=== PATIENT | male | born 1940 | race Caucasian/White ===

== ENCOUNTER 2016-07-07 09:38 | Emergency (ER) | payer MEDICARE, OTHER ==
[2016-07-07 10:35] LABS: #Basophils 0.1 thou/uL (0.0-0.2); #Eosinphils 0.2 thou/uL (0.0-0.7); #Lymphocytes 1.4 thou/uL (1.20-3.40); #Monocytes 0.5 thou/uL (0.11-0.59); #Neutrophils 6.1 thou/uL (1.40-6.50); %Basophils 0.9 % (0.0-1.0); %Eosinophils 2.6 % (0.0-10.0); %Monocytes 5.6 % (0.0-10.0); Hematocrit 42.8 % (42.0-52.0); Mean Platelet Volume 6.5 fL (7.4-10.4); Red Blood Cell (RBC) Count 4.49 mill/uL (4.70-6.10); White Blood Cell (WBC) Count 8.2 thou/uL (4.8-10.8)
[2016-07-07 10:38] LABS: PTT 24.8 SEC (22.9-36.1); Prothrombin Time 13.1 SEC (12.0-14.7)
[2016-07-07 10:45] LABS: ALT (SGPT) 21 U/L (0-55); AST (SGOT) 17 U/L (5-34); Alkaline Phosphatase 78 U/L (40-150); Anion Gap 15 mmol/L (10-20); BUN (Urea Nitrogen) 33 mg/dL (8.4-25.7); Bilirubin, Total 0.5 mg/dL (0.2-1.2); Calc. Creatinine Clearance 0 mL/min (70-130); Calcium 9.1 mg/dL (7.8-10.44); Carbon Dioxide 21 mmol/L (23-31); Chloride 107 mmol/L (98-107); Estimated GFR-MDRD 34; Globulin 2.5 g/dL (2.4-3.5); Protein, Total 6.5 g/dL (5.8-8.1)
[2016-07-07 10:48] LABS: Troponin I Less than 0.010 ng/mL (< 0.028)
--- NOTE | 2016-07-07 11:54 | RAD ---
LEFT RIBS WITH PA CHEST: DATE: 07/07/16. FINDINGS: Multiple views were provided. Not all ribs display equally well, but this is the best that could be done with this patient at this time. No rib fractures were seen. There is no sign of pneumothorax. No large pleural effusions were note d, though there could be a small one on the left and perhaps a little bit of basilar atelectasis. T his sometimes can signify underlying rib fractures, but none were visible at the moment. The lungs are otherwise clear. The heart is normal in size for age. The mediastinum shows no widen ing or shift. The other visible bony structures showed no acute changes. Degenerative changes are prominent in the spine. IMPRESSION: No acute bony findings. See discussion above. POS: HOME
== END 2016-07-07 11:18 | disposition home or self-care (01) ==
LOC: BURERS 09:38
DX: S20.212A Contusion of left front wall of thorax, initial encounter (principal); I10 Essential (primary) hypertension; E11.9 Type 2 diabetes mellitus without complications; W17.89XA Other fall from one level to another, initial encounter
CPT/HCPCS: 80053; 82553; 84484; 85025; 85610; 85730; 93005; 94760

== ENCOUNTER 2016-12-07 06:28 | Emergency (ER) | payer MEDICARE ==
[2016-12-07 07:10] LABS: Bilirubin Negative (Negative); Blood, Urine Negative (Negative); Clarity Clear (Clear); Glucose, Urine (Dipstick) Negative (Negative); Leukocyte Negative (Negative); Nitrite Negative (Negative); Protein, Urine (Dipstick) Trace mg/dL (Neg-Trace); Urobilinogen 0.2 mg/dL (0.2-1.0); pH, Urine 5.5 (5.0-9.0)
[2016-12-07 07:14] LABS: Specific Gravity, Urine Greater/Equal 1.030 (1.005-1.030)
== END 2016-12-07 07:04 | disposition home or self-care (01) ==
LOC: BURERS 06:28
DX: R33.9 Retention of urine, unspecified (principal); E11.9 Type 2 diabetes mellitus without complications; I10 Essential (primary) hypertension
CPT/HCPCS: 51701; 81003; A4353

== ENCOUNTER 2018-01-10 10:31 | Emergency (ER) | payer MEDICARE ==
[2018-01-10] MEDS ORDERED: Diazepam 5 MG TAB ONE (11:13)
== END 2018-01-10 11:19 | disposition home or self-care (01) ==
LOC: BURERS 10:31
DX: S16.1XXA Strain of muscle, fascia and tendon at neck level, initial encounter (principal); I10 Essential (primary) hypertension; E11.9 Type 2 diabetes mellitus without complications; X50.1XXA Overexertion from prolonged static or awkward postures, initial encounter
CPT/HCPCS: 99283

== ENCOUNTER 2019-01-26 06:21 | Emergency (ER) | payer MEDICARE ==
[2019-01-26 06:58] LABS: #Basophils 0.1 thou/uL (0.0-0.2); #Eosinphils 0.2 thou/uL (0.0-0.7); #Lymphocytes 1.2 thou/uL (1.20-3.40); #Monocytes 0.8 thou/uL (0.11-0.59); #Neutrophils 10.5 thou/uL (1.40-6.50); %Basophils 0.5 % (0.0-1.0); %Eosinophils 1.3 % (0.0-10.0); %Lymphocytes 9.5 % (21.0-51.0); %Monocytes 6.3 % (0.0-10.0); %Neutrophils 82.4 % (42.0-75.0); Hemoglobin 13.4 g/dL (14.0-18.0); Mean Corpuscular HGB CONC 34.5 g/dL (32.0-36.0); Mean Corpuscular Volume 95.7 fL (78.0-98.0); Mean Platelet Volume 6.5 fL (7.4-10.4); Platelet Count 180 thou/uL (130-400); RBC Distribution Width 11.3 % (11.5-14.5); Red Blood Cell (RBC) Count 4.05 mill/uL (4.70-6.10); White Blood Cell (WBC) Count 12.7 thou/uL (4.8-10.8)
[2019-01-26] MEDS ORDERED: Fentanyl 100 MCG/2 ML VIAL ONE (07:02)
[2019-01-26 07:13] LABS: ALT (SGPT) 21 U/L (8-55); AST (SGOT) 18 U/L (5-34); Alkaline Phosphatase 63 U/L (40-150); Anion Gap 16 mmol/L (10-20); BUN (Urea Nitrogen) 25 mg/dL (8.4-25.7); Bilirubin, Total 0.6 mg/dL (0.2-1.2); Calc. Creatinine Clearance 0 mL/min (70-130); Calcium 9.4 mg/dL (7.8-10.44); Carbon Dioxide 22 mmol/L (23-31); Chloride 107 mmol/L (98-107); Estimated GFR-MDRD 42; Globulin 2.4 g/dL (2.4-3.5); Glucose 237 mg/dL (83-110); Potassium 4.5 mmol/L (3.5-5.1); Protein, Total 6.4 g/dL (5.8-8.1); Sodium 140 mmol/L (136-145)
[2019-01-26 07:43] LABS: Lipase 4053 U/L (8-78)
[2019-01-26] MEDS ORDERED: Iopamidol 370 76% 100 ML VIAL ONE (08:02)
--- NOTE | 2019-01-26 10:09 | CT ---
CT OF THE CHEST AND ABDOMEN AND PELVIS WITH IV CONTRAST: INDICATION: History of hypertension, diabetes, gastroesophageal reflux disease, abdominal and chest pain. COMPARISON: None. FINDINGS: No confluent airspace opacity or pleural effusion is noted. There are areas of subsegmental volume l oss involving both lower lobes. There are scattered calcifications involving the coronary arteries and thoracic aorta. No focal hepatic lesion is evident. The gallbladder is contracted. There is inflammatory stranding seen surrounding the 2nd portion of the duodenum as well s the pancreatic head. There are tiny calci fications seen within the pancreatic head adjacent to the region of the ampulla. No drainable fluid collection is evident. There are 2 cystic abnormalities seen within the pancreatic tail which cannot be further characterized measuring 9 and 12 mm separately. This is best seen on image 88 of the cor onal series. No additional focal pancreatic lesion is grossly evident. There is a 1-2 mm calculus within the lower pole of the right kidney. There is an atrophic left kidn ey. There are moderate calcifications involving the abdominopelvic vasculature. Scattered diverticula involving the colon. The small bowel is of normal caliber. No drainable fluid collection is evident. There bladder, rectum, and perirectal soft tissues are unremarkable-appearin g. There is cervical lumbar scoliosis with scattered degenerative change. No definite acute osseous abnormality is evident. IMPRESSION: 1. Findings suspicious for noncomplicated acute pancreatitis. Recommend correlation with clinical e xamination and laboratory evaluation. There are tiny punctate coarse calcifications seen in the panc reatic head adjacent to the ampulla which may reflect sequelae of prior pancreatitis. Partially calc ified ampullary lesion is not definitely excluded. Would recommend a gastroenterology consultation i n consideration for endoscopy. 2. Cystic abnormalities involving the pancreatic tail. Further evaluation with a CT of the abdomen utilizing pancreatic mass protocol after abatement of the patient's acute symptoms is recommended. D ifferential considerations include small pseudocysts, small serous cysts or possibly small side branc h IMPN tumors. 3. Colonic diverticulosis. 4. Other chronic findings as above. CODE T POS: OFF
== END 2019-01-26 08:37 | disposition short-term general hospital (02) ==
LOC: BURERS 06:21
DX: K85.90 Acute pancreatitis without necrosis or infection, unspecified (principal); I10 Essential (primary) hypertension; E78.00 Pure hypercholesterolemia, unspecified; K21.9 Gastro-esophageal reflux disease without esophagitis; N40.0 Benign prostatic hyperplasia without lower urinary tract symptoms; Z79.899 Other long term (current) drug therapy; Z79.84 Long term (current) use of oral hypoglycemic drugs
CPT/HCPCS: 36415; 71260; 74177; 80053; 83605; 83690; 84484; 85025; 93005; 94760; 96361; 96374; J3010; Q9967

== ENCOUNTER 2019-04-03 13:51 | Emergency (ER) | payer MEDICARE ==
[2019-04-03] MEDS ORDERED: Ondansetron PF 4 MG/2 ML Vial ONE ×2 (14:24→14:36)
[2019-04-03] MEDS ORDERED: Fentanyl 100 MCG/2 ML VIAL ONE (14:24)
[2019-04-03 14:34] LABS: #Monocytes 0.7 thou/uL (0.11-0.59); #Neutrophils 15.1 thou/uL (1.40-6.50); %Basophils 0.2 % (0.0-1.0); %Monocytes 3.9 % (0.0-10.0); %Neutrophils 89.8 % (42.0-75.0); Hemoglobin 13.5 g/dL (14.0-18.0); Mean Corpuscular HGB CONC 34.4 g/dL (32.0-36.0); Mean Corpuscular Hemoglobin 32.9 pg (27.0-31.0); Mean Corpuscular Volume 95.5 fL (78.0-98.0); Mean Platelet Volume 6.7 fL (7.4-10.4); Platelet Count 228 thou/uL (130-400); RBC Distribution Width 11.5 % (11.5-14.5); Red Blood Cell (RBC) Count 4.11 mill/uL (4.70-6.10); White Blood Cell (WBC) Count 16.9 thou/uL (4.8-10.8)
[2019-04-03 14:36] LABS: INR-International Normal Ratio 1.1; PTT 25.1 SEC (22.9-36.1); Prothrombin Time 13.8 SEC (12.0-14.7)
[2019-04-03 14:47] LABS: ALT (SGPT) 18 U/L (8-55); AST (SGOT) 9 U/L (5-34); Alkaline Phosphatase 69 U/L (40-110); Anion Gap 22 mmol/L (10-20); BUN (Urea Nitrogen) 46 mg/dL (8.4-25.7); Bilirubin, Total 0.6 mg/dL (0.2-1.2); Calc. Creatinine Clearance 0 mL/min (70-130); Calcium 9.6 mg/dL (7.8-10.44); Carbon Dioxide 28 mmol/L (23-31); Chloride 92 mmol/L (98-107); Estimated GFR-MDRD 28; Globulin 2.3 g/dL (2.4-3.5); Glucose 431 mg/dL (83-110); Lipase 27 U/L (8-78); Potassium 4.3 mmol/L (3.5-5.1); Protein, Total 6.3 g/dL (5.8-8.1); Sodium 138 mmol/L (136-145)
[2019-04-03] MEDS ORDERED: Benzocaine 20% Spray 60 ML CAN ONE ×2 (15:26→15:28)
[2019-04-03] MEDS ORDERED: Pantoprazole 40 MG VIAL ONE ×2 (15:26→15:28)
[2019-04-03] MEDS ORDERED: Lidocaine Viscous Sol 2% 15 ml UD Cup ONE ×2 (15:26→15:28)
[2019-04-03] MEDS ORDERED: Oxymetazoline HCl 0.05% (30 ML BOT) ONE (15:32)
[2019-04-03] MEDS ORDERED: Calcium Gluc 4.6 MEQ/10 ML (100 MG/ML) ONE (15:32)
--- NOTE | 2019-04-03 15:44 | CT ---
CT ABDOMEN AND PELVIS WITHOUT CONTRAST: 04/03/[address] of the abdomen and pelvis was done without oral or IV contrast to rule out a small bowel ob struction. The major finding on this study is marked distention of the stomach and duodenal bulb. There is a lar ge amount of fluid in each. Within the duodenal bulb there is a 3.7 cm mass density. After this point , all of the GI tract assumes a normal caliber from the remainder of the duodenum through the rectum. There is no sign of free air or free fluid. Diverticulosis is present without any sign of diverticul itis. The liver, spleen, pancreas, gallbladder and aorta showed no acute findings. The kidneys are small, p articularly the left. Nonobstructing renal calculi are suggested on the right. CT of the pelvis shows no pelvic masses, fluid collections, or inflammatory changes. IMPRESSION: Gastric obstruction at the level of the distal portion of the duodenal bulb. The density I see in the distal bulb is presumed to be a mass until proven otherwise. Findings discussed with Dr. Doherty at 1514. POS: HOME
[2019-04-03 17:23] LABS: Lactic Acid 4.9 mmol/L (0.5-2.2)
== END 2019-04-03 19:14 | disposition short-term general hospital (02) ==
LOC: BURERS 13:51
DX: K92.2 Gastrointestinal hemorrhage, unspecified (principal); K31.1 Adult hypertrophic pyloric stenosis; E11.9 Type 2 diabetes mellitus without complications; I10 Essential (primary) hypertension; E78.00 Pure hypercholesterolemia, unspecified; K21.9 Gastro-esophageal reflux disease without esophagitis; N40.0 Benign prostatic hyperplasia without lower urinary tract symptoms; Z79.899 Other long term (current) drug therapy; Z79.82 Long term (current) use of aspirin; Z79.84 Long term (current) use of oral hypoglycemic drugs
CPT/HCPCS: 36415; 74176; 80053; 82271; 83605; 83690; 85025; 85610; 85730; 86850; 86900; 86901; 96361; 96365; 96366; 96375; 96376; C9113; J2405; J3010

== ENCOUNTER 2020-03-19 09:14 | Emergency (ER) | payer MEDICARE ==
[2020-03-19 10:39] LABS: #Eosinphils 0.1 thou/uL (0.0-0.7); #Lymphocytes 1.1 thou/uL (1.20-3.40); #Monocytes 0.9 thou/uL (0.11-0.59); #Neutrophils 8.8 thou/uL (1.40-6.50); %Basophils 0.4 % (0.0-1.0); %Eosinophils 0.5 % (0.0-10.0); %Lymphocytes 10.2 % (21.0-51.0); %Monocytes 7.9 % (0.0-10.0); %Neutrophils 80.9 % (42.0-75.0); Hemoglobin 13.4 g/dL (14.0-18.0); Mean Corpuscular HGB CONC 32.6 g/dL (32.0-36.0); Mean Corpuscular Hemoglobin 32.3 pg (27.0-31.0); Mean Platelet Volume 6.2 fL (7.4-10.4); Platelet Count 178 thou/uL (130-400); RBC Distribution Width 11.7 % (11.5-14.5); Red Blood Cell (RBC) Count 4.15 mill/uL (4.70-6.10); White Blood Cell (WBC) Count 10.8 thou/uL (4.8-10.8)
[2020-03-19 10:52] LABS: ALT (SGPT) 21 U/L (8-55); AST (SGOT) 15 U/L (5-34); Alkaline Phosphatase 90 U/L (40-110); Anion Gap 17 mmol/L (10-20); BUN (Urea Nitrogen) 26 mg/dL (8.4-25.7); Bilirubin, Total 0.6 mg/dL (0.2-1.2); Calc. Creatinine Clearance 0 mL/min (70-130); Calcium 9.3 mg/dL (7.8-10.44); Carbon Dioxide 21 mmol/L (23-31); Chloride 107 mmol/L (98-107); Estimated GFR-MDRD 34; Globulin 2.8 g/dL (2.4-3.5); Glucose 114 mg/dL (83-110); Lipase 463 U/L (8-78); Potassium 4.2 mmol/L (3.5-5.1); Protein, Total 6.8 g/dL (5.8-8.1); Sodium 141 mmol/L (136-145)
[2020-03-19] MEDS ORDERED: Pantoprazole 40 MG VIAL ONE (11:53)
[2020-03-19 13:14] LABS: Bilirubin Negative (Negative); Blood, Urine Small (Negative); Glucose, Urine (Dipstick) Negative (Negative); Ketone, Urine Trace mg/dL (Negative); Leukocyte Small (Negative); Nitrite Negative (Negative); Protein, Urine (Dipstick) > or equal to 300 mg/dL (Neg-Trace); Specific Gravity, Urine 1.025 (1.005-1.030); Urobilinogen 0.2 mg/dL (Less than 2); pH, Urine 5.5 (5.0-9.0)
[2020-03-19 13:19] LABS: Clarity Cloudy (Clear)
[2020-03-19 13:20] LABS: Bacteria/HPF 3+ HPF (None Seen); WBC/HPF Greater Than 50 HPF (0-3)
[2020-03-19] MEDS ORDERED: Iopamidol 370 76% 100 ML VIAL ONE (15:24)
--- NOTE | 2020-03-19 16:08 | RAD ---
PORTABLE CHEST: 03/19/20 An AP portable film at 1056 is compared with a 07/07/16 study. Mild elevation of the right hemidiaphra gm is no different than before. The lungs are clear. There is no congestion or pleural effusion. The heart size is normal. IMPRESSION: Stable exam showing no acute finding. POS: HOME
--- NOTE | 2020-03-19 20:21 | CT ---
CT ABDOMEN AND PELVIS WITH CONTRAST: 03/19/20 COMPARISON: Comparison is made with the prior exam of 04/03/19. The lung bases are clear. The liver and spleen are normal in appearance. I understand the patient's lipase is elevated. There is no significant amount of stranding around the pancreas at the moment. A most, there might be a very tiny amount near the neck, but the finding is equivocal. A tiny 10 mm cys tic area in the tail of the pancreas has been seen on prior scans dating back to 2019. It is exactly the same today with no change in size. The right kidney shows no acute findings. The left kidney is a trophic as usual, along with some stranding around it. The appearance of the kidneys has not changed over time. There is no distention of the stomach or bowel today. A moderate amount of fecal material is seen in the colon. diverticulosis is seen in the left colon, particularly the sigmoid, with no signs of diver ticulitis. No free air or free fluid was seen. CT of the pelvis shows no mass, inflammatory change or other acute findings. Degenerative changes in the spine are considerable, just as before. IMPRESSION: 1. Mild constipation. 2. No evidence of gastric obstruction or bowel obstruction today. 3. Little to no stranding around the pancreas. 10 mm cystic lesion in the tail is unchanged sinc e 01/26/19. Findings discussed with Dr. Basurto at 1130 on 03/19/20. POS: HOME
== END 2020-03-19 12:52 | disposition home or self-care (01) ==
LOC: BURERS 09:14
DX: K85.90 Acute pancreatitis without necrosis or infection, unspecified (principal); N39.0 Urinary tract infection, site not specified; K59.00 Constipation, unspecified; E11.9 Type 2 diabetes mellitus without complications; E78.5 Hyperlipidemia, unspecified; E78.00 Pure hypercholesterolemia, unspecified; K21.9 Gastro-esophageal reflux disease without esophagitis; N40.0 Benign prostatic hyperplasia without lower urinary tract symptoms; I10 Essential (primary) hypertension; Z79.899 Other long term (current) drug therapy; Z79.84 Long term (current) use of oral hypoglycemic drugs
CPT/HCPCS: 36415; 36416; 71045; 74177; 80053; 81003; 81015; 83605; 83690; 84484; 85025; 87077; 87086; 87186; 96374; C9113; Q9967

== ENCOUNTER 2022-01-02 12:03 | Emergency (ER) | payer MEDICARE | END 2022-01-02 13:13 | disposition home or self-care (01) | LOC: BURERS 12:03 | DX: S63.502A Unspecified sprain of left wrist, initial encounter (principal); S43.402A Unspecified sprain of left shoulder joint, initial encounter; S20.211A Contusion of right front wall of thorax, initial encounter; M19.90 Unspecified osteoarthritis, unspecified site; I10 Essential (primary) hypertension; E11.9 Type 2 diabetes mellitus without complications; E78.00 Pure hypercholesterolemia, unspecified; K21.9 Gastro-esophageal reflux disease without esophagitis; N40.0 Benign prostatic hyperplasia without lower urinary tract symptoms; W18.30XA Fall on same level, unspecified, initial encounter | CPT/HCPCS: 71046 ==

== ENCOUNTER 2022-01-19 11:53 | Emergency (ER) | payer MEDICARE ==
[2022-01-19 12:27] LABS: #Basophils 0.1 thou/uL (0.0-0.2); #Eosinphils 0.1 thou/uL (0.0-0.7); #Lymphocytes 2.6 thou/uL (1.20-3.40); #Monocytes 0.9 thou/uL (0.11-0.59); #Neutrophils 8.7 thou/uL (1.40-6.50); %Basophils 0.8 % (0.0-1.0); %Lymphocytes 20.8 % (21.0-51.0); %Monocytes 7.3 % (0.0-10.0); Hemoglobin 14.6 g/dL (14.0-18.0); Mean Corpuscular HGB CONC 33.4 g/dL (32.0-36.0); Mean Corpuscular Hemoglobin 32.4 pg (27.0-31.0); Mean Corpuscular Volume 96.8 fL (78.0-98.0); Mean Platelet Volume 6.2 fL (7.4-10.4); Platelet Count 443 thou/uL (130-400); RBC Distribution Width 12.5 % (11.5-14.5); White Blood Cell (WBC) Count 12.4 thou/uL (4.8-10.8)
[2022-01-19 12:42] LABS: ALT (SGPT) 13 U/L (8-55); AST (SGOT) 14 U/L (5-34); Albumin 3.8 g/dL (3.4-4.8); Alkaline Phosphatase 161 U/L (40-110); Anion Gap 19 mmol/L (10-20); BUN (Urea Nitrogen) 41 mg/dL (8.4-25.7); Bilirubin, Total 0.5 mg/dL (0.2-1.2); Calc. Creatinine Clearance 0 mL/min (70-130); Calcium 9.2 mg/dL (7.8-10.44); Carbon Dioxide 19 mmol/L (23-31); Chloride 103 mmol/L (98-107); Estimated GFR 27; Globulin 2.2 g/dL (2.4-3.5); Glucose 183 mg/dL (83-110); Magnesium 1.7 mg/dL (1.6-2.6); Potassium 4.8 mmol/L (3.5-5.1); Sodium 136 mmol/L (136-145)
== END 2022-01-19 14:28 | disposition home or self-care (01) ==
LOC: BURERS 11:53
DX: E86.0 Dehydration (principal); R43.2 Parageusia; R63.0 Anorexia; I10 Essential (primary) hypertension; E11.9 Type 2 diabetes mellitus without complications; E78.00 Pure hypercholesterolemia, unspecified; K21.9 Gastro-esophageal reflux disease without esophagitis; Z79.899 Other long term (current) drug therapy
CPT/HCPCS: 71045; 80053; 83690; 83735; 84484; 85025; 93005; 96360